=== PATIENT | male | born 1970 | race Caucasian/White ===

== ENCOUNTER → 2019-03-03 10:48 | Outpatient (CLI) | payer OTHER, SELFPAY ==
--- NOTE | 2019-03-03 | DI.RAD.S_ITS ---
PROCEDURE: XR CERVICAL SPINE 2V OR 3V INDICATIONS: NECK PAIN TECHNIQUE: 3 view(s) of the cervical spine were acquired. COMPARISON: None. FINDINGS: Bones: No fractures or dislocations to the T1 level. The lateral masses of C1 appear intact on the odontoid view. No suspicious bony lesions. There is mild degenerative osteoarthritic change and facet hyperostosis there is mild with degenerative disc disease that is moderate at C5-6. Soft tissues: No prevertebral soft tissue swelling. IMPRESSION: C5-6 degenerative disc disease and facet osteoarthritis is present to the degree that mild spinal or foraminal stenosis may be present. No prior trauma found, no subluxation associated. Dictated by: Phil Locke M.D. on 03/03/2019 at 12:20 Approved by: Phil Locke M.D. on 03/03/2019 at 12:23
--- NOTE | 2019-03-03 | DI.RAD.S_ITS ---
PROCEDURE: XR ANKLE LT MIN 3V INDICATIONS: RIGHT ANKLE PAIN TECHNIQUE: 3 views of the ankle were acquired. COMPARISON: [facility], , ANKLE 3 VIEWS RIGHT, 05/04/2007, 22:16. FINDINGS: Bones: No acute fractures or dislocations. Ankle mortise is normally aligned. No suspicious bony lesions. Soft tissues: No tibiotalar joint effusion. Achilles tendon appears normal. 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 Dictated by: Phil Locke M.D. on 03/03/2019 at 12:20 Approved by: Phil Locke M.D. on 03/03/2019 at 12:20
== END ==
PROVIDERS: PCP Family Medicine; Visit Provider Family Medicine
DX: M25.571 Pain in right ankle and joints of right foot (principal); M50.322 Other cervical disc degeneration at C5-C6 level; M47.812 Spondylosis without myelopathy or radiculopathy, cervical region
CPT/HCPCS: 72040; 73600

== ENCOUNTER → 2023-03-19 10:19 | Outpatient (CLI) | payer OTHER, SELFPAY ==
--- NOTE | 2023-03-19 10:25 | DI.RAD.S_ITS ---
PROCEDURE: XR CHEST 2V INDICATIONS: ACUTE COUGH TECHNIQUE: 2 views of the chest were acquired. COMPARISON: None. FINDINGS: Surgical changes and devices: None. Lungs and pleura: Lungs are clear. No pleural effusions or pneumothorax. Mediastinum: Mediastinal contours are normal. Heart size is normal. Bones and chest wall: No suspicious bony abnormalities. Soft tissues appear unremarkable. IMPRESSION: No acute cardiopulmonary abnormality is seen. Approved by: Corinna Talley M.D. on 03/19/2023 at 12:40
== END ==
LOC: RAD 10:23
PROVIDERS: PCP Family Medicine; Referring Provider Internal Medicine; Visit Provider Internal Medicine
DX: R05.1 Acute cough (principal)
CPT/HCPCS: 0241U; 71046

== ENCOUNTER → 2023-03-19 10:22 | Outpatient (ROUT) | payer OTHER, SELFPAY ==
[2023-03-19 11:07] LABS: Influenza A - CEPHEID Flu A NEGATIVE (NEGATIVE); Influenza B - CEPHEID Flu B NEGATIVE (NEGATIVE); Respiratory Syncytial Virus Negative (Negative)
[2023-03-19 11:21] LABS: COVID-19 CEPHEID 4-PLEX PCR Negative (Negative)
== END ==
PROVIDERS: PCP Family Medicine; Visit Provider Internal Medicine
DX: R05.1 Acute cough (principal)
CPT/HCPCS: 0241U

== ENCOUNTER → 2023-03-27 15:47 | Outpatient (CLI) | payer OTHER, SELFPAY ==
--- NOTE | 2023-03-27 17:01 | DI.CT.S_ITS ---
PROCEDURE: CT CHEST W CON INDICATIONS: COUGH TECHNIQUE: After the administration of intravenous contrast, 5 mm thick sections acquired from the pulmonary apices to the posterior costophrenic angles. 1 mm axial lung, 5 mm thick coronal and sagittal reformats and 7 mm axial MIP were acquired. For radiation dose reduction, the following was used: automated exposure control, adjustment of mA and/or kV according to patient size. COMPARISON: None. FINDINGS: Image quality: Diagnostic. Lower Neck: No enlarged lymph nodes. Thyroid: No thyroid nodules which require sonographic follow up, per consensus guidelines. Axillae: No enlarged lymph nodes. Chest Wall: Unremarkable. Bones: Unremarkable. Lungs and Pleura: Scattered ground-glass radiopacities are present within the right upper lobe. A 4 mm pulmonary nodule is present within the lateral aspect of the left lower lobe (series 3/image 231). A 3 mm pulmonary nodule is present within the lateral aspect of the right upper lobe. No suspicious pulmonary nodules. Heart: Heart size is normal. No pericardial effusion. Thoracic Vessels: The aorta and pulmonary arteries demonstrate normal size. Mediastinum and Komal: No enlarged lymph nodes. Esophagus: No wall thickening. No hiatal hernia. Upper Abdomen: A low-density cystic lesion is present within hepatic segment VII suggesting a simple hepatic cyst which is incompletely characterized. Visualized upper abdomen solid organs and bowel loops appear otherwise normal. IMPRESSION: 1. Patchy ground-glass airspace opacities within the right upper lobe suspicious for pneumonia. Short interval follow-up is recommended to ensure resolution of this finding. Dictated by: Diane Longoria M.D. on 03/28/2023 at 15:08 Approved by: Diane Longoria M.D. on 03/28/2023 at 15:12
== END ==
PROVIDERS: PCP Family Medicine; Referring Provider Internal Medicine; Visit Provider Internal Medicine
DX: R04.2 Hemoptysis (principal); R05.1 Acute cough; R91.8 Other nonspecific abnormal finding of lung field; K76.9 Liver disease, unspecified
CPT/HCPCS: 71260; A9579

== ENCOUNTER → 2023-05-07 08:44 | Outpatient (CLI) | payer OTHER, SELFPAY ==
--- NOTE | 2023-05-07 | DI.CT.S_ITS ---
PROCEDURE: CT CHEST WO CON INDICATIONS: Acute cough, hemoptysis TECHNIQUE: Noncontrast 5 mm thick sections acquired from the pulmonary apices to the posterior costophrenic angles. 1 mm lung window, 5 mm thick coronal and sagittal and 7 mm axial MIP reformats were then acquired. For radiation dose reduction, the following was used: automated exposure control, adjustment of mA and/or kV according to patient size. COMPARISON: [facility], CT, CT CHEST W CON, 03/27/2023, 17:00. FINDINGS: Image quality: Diagnostic. Lower Neck: No enlarged lymph nodes. Thyroid: No thyroid nodules which require sonographic follow up, per consensus guidelines. Axillae: No enlarged lymph nodes. Chest Wall: Unremarkable. Bones: Unremarkable. Lungs and Pleura: No pneumothorax or pleural effusions. Resolved ground-glass. Stable 3 mm juxtapleural nodule in the right upper lobe, favoring a benign intrapulmonary lymph node. Mild bronchial thickening. Heart: Heart size is normal. No pericardial effusion. Thoracic Vessels: The aorta and pulmonary arteries demonstrate normal size. Mediastinum and Komal: No enlarged lymph nodes. Esophagus: No wall thickening. No hiatal hernia. Upper Abdomen: Visualized upper abdomen solid organs and bowel loops appear normal. IMPRESSION: Resolved ground-glass in the lungs, favoring resolved infection. Mild bronchial thickening, probably inflammatory bronchitis. Dictated by: Baltazar Luna M.D. on 05/07/2023 at 9:44 Approved by: Baltazar Luna M.D. on 05/07/2023 at 9:47
== END ==
LOC: CT 08:45
PROVIDERS: PCP Family Medicine; Referring Provider Family Medicine; Visit Provider Family Medicine
DX: R05.1 Acute cough (principal); R04.2 Hemoptysis; R91.1 Solitary pulmonary nodule
CPT/HCPCS: 71250